=== PATIENT | male | born 1980 ===

== ENCOUNTER 2018-09-09 03:13 | Emergency (ER) | payer OTHER ==
[2018-09-09 03:21] VITALS: BP 145/95; PULSE 76; TEMP 97.5; BMI 22.7
--- NOTE | 2018-09-09 03:35 | PDOC ---
History of Present Illness - General Chief Complaint: Rash Stated Complaint: RASH Time Seen by Provider: 09/09/18 03:16 - History of Present Illness Initial Comments: This 37-year-old man with a history of dust ALLERGY but no other known allergies and no other significant past medical history presents with approximately 12 hours of progressive erythematous, pruritic rash. Patient states that he first noted faint redness and swelling around his face/neck earlier today. Tonight, he noted that the rash had spread to his chest and back. He has taken no medication for the itching. He has had no history of lip /tongue swelling or difficulty swallowing/breathing. He recently had runny nose /nasal congestion but no recent fever or systemic complaints. Patient gets monthly ALLERGY shots for his dust ALLERGY. He states that he has been tested for other common allergens but only tested positive for dust. He cannot recall any recent new food/medication/supplement ingestion. No recent travel (visited [facility] approximately 6 weeks ago) Past History - Past Medical History Allergies/Adverse Reactions: Allergies Allergy/AdvReac Type Severity Reaction Status Date / Time No Known Allergies Allergy Verified 09/09/18 03:22 Home Medications: Ambulatory Orders Fluticasone Prop 0.05% Nasal [Flonase -] 1 - 2 spray NS DAILY 09/09/18 COPD: Yes Other medical history: ALLERGIES - Suicide/Smoking/Psychosocial Hx Smoking History: Never smoked Have you smoked in the past 12 months: No Information on smoking cessation initiated: No Hx Alcohol Use: No Drug/Substance Use Hx: No Review of Systems - Review of Systems Able to Perform ROS?: Yes Comments:: 12 point review of systems is negative except for what is noted in the history of present illness *Physical Exam - Vital Signs Last Vital Signs Temp Pulse Resp BP Pulse Ox 97.5 F L 76 16 145/95 100 09/09/18 03:18 09/09/18 03:18 09/09/18 03:18 09/09/18 03:18 09/09/18 03:18 - Physical Exam Comments: GENERAL: Adult male, alert and oriented 3, in no acute distress HEAD: Normal with no signs of trauma. EYES: PERRLA, EOMI, sclera anicteric, conjunctiva clear. ENT: Ears normal, nares patent, oropharynx clear without exudates. Moist mucous membranes. No lip/tongue/uvular edema NECK: Normal range of motion, supple without lymphadenopathy, JVD, or masses. No stridor LUNGS: Breath sounds equal, clear to auscultation bilaterally. No wheezes, and no crackles. HEART:Regular rate and rhythm, normal S1 and S2 without murmur, rub or gallop. ABDOMEN:.normal bowel sounds No guarding,tenderness or rebound.No masses No distention. EXTREMITIES: Normal range of motion, no edema. No clubbing or cyanosis. No erythema, or tenderness. NEUROLOGICAL: Cranial nerves II through XII grossly intact. Normal speech. No focal neurological deficits. MUSCULOSKELETAL: Back non-tender to palpation, no CVA tenderness SKIN: Widespread erythematous maculopapular rash consistent with urticaria, especially on neck/back/chest Faint erythema of face without significant edema; no lip edema noted Moderate Sedation - Procedure Monitoring Vital Signs: Procedure Monitoring Vital Signs Temperature 97.5 F L 09/09/18 03:18 Pulse Rate 76 09/09/18 03:18 Respiratory Rate 16 09/09/18 03:18 Blood Pressure 145/95 09/09/18 03:18 O2 Sat by Pulse Oximetry (%) 100 09/09/18 03:18 Progress Note - Progress Note Progress Note: This 37-year-old man with a history of dust ALLERGY but no other known ALLERGIES presents with 1 day history of rash consistent with urticaria. Of note, he has no upper airway edema/difficulty swallowing or breathing. Patient has not taken any medications for his pruritus. Exam as noted. The patient currently has an stockfeed miller because of his dust ALLERGY and monthly injections. Since the patient has no evidence of upper airway involvement in his ALLERGY, and has not used any antihistamines yet, steroid treatment can be deferred. Patient will take 50 mg of Benadryl by mouth when he returns home (he drove himself to the ER). 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 He should continue Benadryl by mouth as needed for recurrent pruritus. If he has persistent urticaria despite use of diphenhydramine, he should contact his general doctor or stockfeed miller for follow-up within 48 hours. Patient was strongly advised to return to ER immediately if he has any lip or tongue edema or has any sensation of difficulty swallowing/breathing. *DC/Admit/Observation/Transfer Diagnosis at time of Disposition: Urticaria - Discharge Dispostion Disposition: HOME Condition at time of disposition: Stable - Referrals - Patient Instructions Printed Discharge Instructions: Ray Additional Instructions: Benadryl 50 mg every 6 hours as needed for itching Do not perform any activity that needs your full attention while taking Benadryl Return to ER immediately if you have any lip/tongue swelling or difficulty breathing/swallowing Follow-up with your general doctor within the next 48 hours - Post Discharge Activity
== END 2018-09-09 03:37 | disposition home or self-care (01) ==
LOC: FER 03:13
DX: L50.9 Urticaria, unspecified (principal)
CPT/HCPCS: 99281-25